=== PATIENT | male | born 1990 | race Caucasian/White ===

== ENCOUNTER 2017-01-16 15:41 | Emergency (ER) | payer SELFPAY ==
[~2017-01-16] VITALS: Ht 185.4 cm; Wt 124.7 kg
[2017-01-16 16:34] VITALS: BP 148/86
[2017-01-16] MEDS ORDERED: cefTRIAXone SOD 1,000 MG VL IM ONE (17:15)
[2017-01-16] MEDS ORDERED: KETOROLAC TROMETH 60MG/2ML VIAL IM ONE (17:15)
== END 2017-01-16 17:24 | disposition home or self-care (01) ==
LOC: ER 15:46
DX: K04.7 Periapical abscess without sinus (principal); F17.210 Nicotine dependence, cigarettes, uncomplicated; Z88.0 Allergy status to penicillin
CPT/HCPCS: 96372; 99284; J0696; J1885